=== PATIENT | male | born 1965 | race African-American/Black ===

== ENCOUNTER 2016-10-11 02:08 | Emergency (ER) | payer MEDICARE, MEDICAID ==
[~2016-10-11] VITALS: Ht 190.5 cm; Wt 114.0 kg
[~2016-10-11 02:08] MED LIST: ASPI-1035; BENA40TA66 PO; FURO-151; HYDR-4134; METO100T5 PO; NIFE60TA83 PO; SIMV10TA6; SPIR25TA PO; SPIR25TA4; TAMS0.4C31 PO; VITA-261 PO
[2016-10-11] MEDS ORDERED: CLONIDINE 0.2MG TABLET PO ONE (02:30)
[2016-10-11 02:42] LABS: HEMATOCRIT. 50.1 % (42.0-52.0); HEMOGLOBIN. 17.2 g/dL (14.0-18.0); LYMPHOCYTES % 25.7 % (20.0-50.0); MEAN CORPUSCULAR HEMOGLOBIN 29.8 pg (28.0-32.0); MEAN CORPUSCULAR HGB CONC 34.4 g/dL (31.0-37.0); MEAN CORPUSCULAR VOLUME 86.7 fL (80.0-94.0); MEAN PLATELET VOLUME 7.5 fl (7.4-10.4); MONOCYTES % 6.7 % (2.0-8.0); NEUTROPHILS % 62.6 % (40.0-76.0); PLATELET 150 x1000/uL (130-400); RED BLOOD CELL COUNT 5.78 mill/uL (4.7-6.1); RED CELL DISTRIBUTION WIDTH 14.4 % (11.6-14.6); WHITE BLOOD COUNT 6.8 x1000/uL (4.5-11.0)
[2016-10-11 02:50] LABS: CHLORIDE 102 mEq/L (98-107); INDEX HEMOLYSI 1 (1-3); INDEX ICTERIC 1 (1-4); INDEX LIPEMIC 1 (1-3)
[2016-10-11 02:52] LABS: INR 1.1; PARTIAL THROMBOPLASTIN TIME 28.7 sec (24.0-34.0)
[2016-10-11 02:58] LABS: ALANINE AMINOTRANSFERASE 15 IU/L (13-61); ALBUMIN 3.7 g/dL (3.4-5.0); ANION GAP 9; CALCIUM 8.9 mg/dL (8.5-10.1); CARBON DIOXIDE 31 mEq/L (21-32); UREA NITROGEN BLOOD 18 mg/dL (7-21); eGFR 56 mL/min (>60)
[2016-10-11] MEDS ORDERED: SILVER NITRATE APPLICATOR STICK TOP ONE (03:30)
[2016-10-11 04:30] VITALS: BP 148/98
== END 2016-10-11 04:08 | disposition home or self-care (01) ==
LOC: ER 02:18
DX: R04.0 Epistaxis (principal); Z88.6 Allergy status to analgesic agent; Z79.899 Other long term (current) drug therapy; I11.0 Hypertensive heart disease with heart failure; I50.9 Heart failure, unspecified
CPT/HCPCS: 30901; 36415; 80053; 85025; 85610; 85730; 99284

== ENCOUNTER 2016-11-28 02:57 | Emergency (ER) | payer MEDICARE, MEDICAID ==
[~2016-11-28] VITALS: Ht 182.9 cm; Wt 90.7 kg
[~2016-11-28 02:57] MED LIST changes: -ASPI-1035; +ASPI-1158
[2016-11-28] MEDS ORDERED: CLONIDINE 0.1MG TABLET PO STA (03:32)
[2016-11-28] MEDS ORDERED: LORAZEPAM 1MG TABLET PO ONE (03:45)
[2016-11-28] MEDS ORDERED: HYDRALAZINE HCL 25MG TABLET PO ONE (05:15)
[2016-11-28 06:29] VITALS: BP 195/137
== END 2016-11-28 06:30 | disposition home or self-care (01) ==
LOC: ER 03:06
DX: R04.0 Epistaxis (principal); I10 Essential (primary) hypertension; Z88.5 Allergy status to narcotic agent
CPT/HCPCS: 99284

== ENCOUNTER 2020-02-14 23:52 | Emergency (ER) | payer MEDICAID, MEDICARE ==
[~2020-02-14] VITALS: Ht 188 cm; Wt 101.0 kg
[~2020-02-14 23:52] MED LIST changes: +METO100T16 PO; -METO100T5 PO; +NIFE60TA82 PO; -NIFE60TA83 PO; -SIMV10TA6; +SIMV10TA97; -SPIR25TA4; +SPIR25TA6
[2020-02-15 00:01] VITALS: BP 168/104
[2020-02-15] MEDS ORDERED: ACETAMINOPHEN 325MG TABLET PO ONE (00:30)
[2020-02-15] MEDS ORDERED: LORAZEPAM 1MG TABLET PO ONE (00:30)
== END 2020-02-15 02:29 | disposition home or self-care (01) ==
LOC: ER 23:52
DX: S80.11XA Contusion of right lower leg, initial encounter (principal); M54.2 Cervicalgia; M54.9 Dorsalgia, unspecified; F43.10 Post-traumatic stress disorder, unspecified; I10 Essential (primary) hypertension; V43.52XA Car driver injured in collision with other type car in traffic accident, initial encounter; Y93.89 Activity, other specified; Y92.488 Other paved roadways as the place of occurrence of the external cause; Z88.6 Allergy status to analgesic agent; Z79.82 Long term (current) use of aspirin
CPT/HCPCS: 73590; 93005; 99283